=== PATIENT | female | born 1950 | race Caucasian/White ===

== ENCOUNTER 2018-10-06 09:00 | Observation (INO) | payer MEDICARE, OTHER ==
[2018-09-30 10:47] LABS: BASOPHILS # (AUTO) 0.1 (0.0-0.1); EOSINOPHILS # (AUTO) 0.1 (0.0-0.4); EOSINOPHILS % 1.2 % (0.0-6.0); HEMATOCRIT 37.7 % (34.2-44.1); HEMOGLOBIN 12.6 g/dL (12.0-16.0); LYMPHOCYTES # (AUTO) 2.5 (1.0-3.2); LYMPHOCYTES % 49.8 % (18.0-39.1); MEAN CORPUSCULAR HEMOGLOBIN 30.4 pg (28-32); MEAN CORPUSCULAR HGB CONC 33.4 g/dL (31-35); MEAN CORPUSCULAR VOLUME 91.1 fL (81-99); MONOCYTES # (AUTO) 0.4 (0.2-0.8); MONOCYTES % 7.9 % (4.4-11.3); NEUTROPHILS % 39.7 % (38.7-80.0); PLATELET COUNT 206 x10e3/uL (140-360); RED BLOOD COUNT 4.14 x10e6/uL (3.6-5.1); RED CELL DISTRIBUTION WIDTH 13.7 % (11.7-14.4)
[2018-09-30 11:07] LABS: ALANINE AMINOTRANSFERASE 35 IU/L (0-55); ALBUMIN 4.3 g/dL (3.5-5.0); ALBUMIN/GLOBULIN RATIO 1.3 (0.8-2.0); ALKALINE PHOSPHATASE 72 IU/L (40-150); ANION GAP 12.8 mmol/L (8-16); BLOOD UREA NITROGEN 17 mg/dL (7-26); BUN/CREATININE RATIO 22 (6-25); CALCIUM 9.9 mg/dL (8.4-10.2); CARBON DIOXIDE 30 mmol/L (22-29); CHLORIDE 101 mmol/L (98-107); CREATININE, SERUM 0.77 mg/dL (0.57-1.11); EST GLOMERULAR FILTRATION RATE > 60 ML/MIN (60-); GLUCOSE 92 mg/dL (74-118); POTASSIUM 3.8 mmol/L (3.5-5.1); SODIUM 140 mmol/L (136-145)
--- NOTE | 2018-09-30 11:20 | Diagnostic Imaging Report ---
PROCEDURE: X-RAY CHEST, TWO VIEWS COMPARISON: None. INDICATIONS: PRE OPERATIVE FOR SURGERY [id number]/2018 FINDINGS: Lungs are well-inflated. No focal consolidation, pleural effusion, or pneumothorax. Cardiomediastinal contour and pulmonary vasculature are within normal limits. No acute osseous abnormality. CONCLUSION: No acute cardiopulmonary abnormality. Dictated by: Primo Stanton M.D. on 09/30/2018 at 11:30 Electronically approved by: Primo Stanton M.D. on 09/30/2018 at 11:30
[~2018-10-06 09:00] MED LIST: ATORVASTATIN CA10 MG PO; CALCIUM 500+D1 EACH PO; CLOTRIMAZOLE-BE15 GM TOP; DIOVAN160 MG PO; MULTIVITAMINS1 EAC6 PO; NITROFURANTOIN100 MG PO; PROBIOTIC & AC1 EACH PO; TRIAMTERENE-HCTZ1 EA PO; [UNRECOGNIZED DRUG - OTHER] PO; [UNRECOGNIZED DRUG - OTHER] PO; [UNRECOGNIZED DRUG - REMARK]
--- OUTSIDE RECORDS SUMMARY | 2018-10-06 09:02 | XMS REPORT | Continuity of Care Document ---
Author Author [facility] Interface Address Unknown Phone Unavailable Problems Problem Status Onset Date Classification Date Reported Comments Source DX: M81.0=AGE-RELATED OSTEOPOROSIS WITHO Active 02/16/2018 [facility] UNK Active 07/22/2017 [facility] DX: ROUTINE SCREENING Active 04/11/2017 [facility] SCREENING MAMMOGRAM Active 12/14/2015 [facility] BLE DX:451.1=DEEP PHLEBITIS/454.8=BLEED Active 08/15/2014 [facility] SCREENING OSTEPORSIS Active 11/12/2013 [facility] SPLIT [id number] Active 01/21/2013 [facility] WEAKNESS Active 09/08/2012 [facility] SYNCOPE Active 09/08/2012 [facility] Syncope and collapse Active 09/08/2012 Problem 09/11/2012 [facility] Syncope and collapse Active 09/08/2012 Problem 02/23/2018 [facility] Varicose vein of leg Active Diagnosis 05/08/2018 [facility] Primary Essential hypertension Active Diagnosis 05/08/2018 [facility] Primary Breast cancer screening Active Diagnosis 11/27/2017 [facility] Primary Osteoporosis screening Active Diagnosis 11/27/2017 [facility] Primary Age-related osteoporosis without current pathological fracture Active Problem 05/08/2018 [facility] Primary Mixed hyperlipidemia Active Diagnosis 05/08/2018 [facility] Primary Dysuria Active Diagnosis 12/10/2017 [facility] Primary Low vitamin D level Active Problem 05/08/2018 [facility] Primary Arthritis Active Problem 05/08/2018 [facility] Primary Bundle branch block Active Problem 05/08/2018 [facility] Primary Acute cystitis without hematuria Active Diagnosis 05/08/2018 [facility] Primary HTN - Hypertension Active Problem 09/11/2012 [facility] HTN - Hypertension Active Problem 02/23/2018 [facility] Hypercholesteremia Resolved Problem 02/23/2018 [facility] HTN (<span ID="[id number]">Confirmed</span>) Resolved Problem 02/23/2018 [facility] M17.9 Active [facility] AGE-RELATED OSTEOPOROSIS W/O CURRENT PAT Active [facility] Medications Medication Details Route Status Patient Instructions Ordering Provider Order Date Source Ergocalciferol 1 capsule Orally Active 12281 UNIT Orally once a week David 05/07/2018 [facility] Naproxen 1 tablet with food or milk as needed Orally Active 500 mg Orally every 12 hrs [facility] 03/02/2018 [facility] Ergocalciferol 1 capsule Orally Active 02096 UNIT Orally once a week [facility] 12/09/2017 [facility] Albuterol 0.833 MG/ML / Ipratropium [place] 0.167 MG/ML Inhalant Solution 3 mL, Route: NEB, Drug Form: SOLN, Dosing Weight 67.273, kg, ONCE, STAT, Start date: 08/20/17 6:51:00 CDT, Stop date: 08/20/17 6:51:00 CDTNotes: (Same as: [place]) Inactive 08/20/2017 [facility] sodium chloride 0.9% 500 ml INJ 500 mL 500 mL, Rate: 25 ml/hr, Infuse over: 20 hr, Route: IV, Dosing Weight 67.273 kg, Total Volume: 500, Start date: 08/20/17 6:51:00 CDT, Duration: 1 day, Stop date: 08/21/17 6:50:00 CDT Inactive 08/20/2017 [facility] Simvastatin 10 MG Oral Tablet [Zocor] 10 mg=1 tab, PO, Bedtime, # 30 tab, 0 Refill(s) Active 08/08/2017 [facility] Hydrochlorothiazide 12.5 MG / valsartan 80 MG Oral Tablet [Diovan HCT 80/12.5] 1 tab, PO, Daily, # 30 tab, 0 Refill(s) Active 08/08/2017 [facility] aspirin 81 mg tablet, chewable 81 mg, 1 tab, PO, Daily, 10 tab, Substitution Allowed, CHEWTAB PO Active Sada 09/09/2012 [facility] Lipitor 10 mg, 1 tab, Route: PO, Drug form: TAB, Bedtime, Dosing Weight 59.091, kg, Start date: 09/08/12 21:00:00, Duration: 30 day, Stop date: 10/07/12 21:00:00 PO No Longer Active Sada 09/09/2012 [facility] Saline Flush 0.9% 5 ml, Route: IVP, Drug Form: INJ, Dosing Weight 59.091, kg, Q12H, Start date: 10/30/12 21:00:00, Duration: 30 day, Stop date: 10/08/12 9:00:00 IVP No Longer Active Sada 09/09/2012 [facility] Saline Flush 0.9% 5 ml, Route: IVP, Drug Form: INJ, Dosing Weight 59.091, kg, PRN, PRN Line Flush, Start date: 09/08/12 19:13:00, Duration: 30 day, Stop date: 10/08/12 18:12:00 IVP No Longer Active Sada 09/09/2012 [facility] Sodium Chloride 0.9% IV 1,000 mL 1,000 mL, Rate: 50 ml/hr, Infuse over: 20 hr, Route: IV, kg, Total Volume: 1,000, Start date: 09/08/12 19:13:00, Duration: 30 day, Stop date: 10/08/12 19:12:00 IV No Longer Active Sada 09/09/2012 [facility] aspirin 81 mg, 1 tab, Route: PO, Drug form: CHEWTAB, Daily, Dosing Weight 59.091, kg, Start date: 09/08/12 18:30:00, Duration: 30 day, Stop date: 10/08/12 9:00:00 PO No Longer Active Sada 09/08/2012 [facility] enoxaparin 40 mg, 0.4 mL, Route: SUB-Q, Drug form: INJ, [id number], Dosing Weight 59.091, kg, Start date: 09/08/12 18:00:00, Duration: 30 day, Stop date: 10/07/12 18:00:00 SUB-Q No Longer Active Sada 09/08/2012 [facility] Ambien 5 mg, 1 tab, Route: PO, Drug form: TAB, Bedtime, Dosing Weight 59.091, kg, PRN as needed for sleep, Start date: 09/08/12 17:51:00, Duration: 30 day, Stop date: 10/08/12 17:50:00, PO No Longer Active Sada 09/08/2012 [facility] Fish Oil 1,200 mg, PO, Every Other Day, Substitution Allowed PO Active 09/08/2012 [facility] lisinopril 10 mg oral tablet 10 mg, 1 tab, PO, Daily, Substitution Allowed PO No Longer Active 09/08/2012 [facility] Lipitor 10 mg oral tablet 10 mg, 1 tab, PO, Bedtime, Substitution Allowed PO Active 09/08/2012 [facility] Saline Flush 0.9% 5 ml, Route: IVP, Drug Form: INJ, Dosing Weight 59.091, kg, PRN, PRN Line Flush, Start date: 09/08/12 16:25:00, Duration: 30 day, Stop date: 10/08/12 15:24:00 IVP No Longer Active Yazidism 09/08/2012 [facility] Sodium Chloride 0.9% IV 1,000 mL 1,000 mL, Rate: 125 ml/hr, Infuse over: 8 hr, Route: IV, kg, Total Volume: 1,000, Start date: 09/08/12 16:25:00, Duration: 30 day, Stop date: 10/08/12 16:24:00 IV No Longer Active Sada 09/08/2012 [facility] Valsartan 1 tablet Orally Active 160 MG Orally Once a day [facility] Triamterene-HCTZ 1 tablet in the morning Orally Active 37.5-25 MG Orally Once a day [facility] Atorvastatin Calcium 1 tablet Orally Active 10 mg Orally Once a day [facility] Estrace cream NA Active 1 MG uses twice a week [facility] Estrace cream NA Active 1 MG uses twice a week [facility] ZyrTEC 1 tablet Orally Active [address] [facility] Allergies, Adverse Reactions, Alerts Substance Category Reaction Severity Reaction type Status Date Reported Comments Source N.K.D.A. Adverse Reaction Info Not Available Adverse Reaction Active 05/07/2018 [facility] Primary Immunizations Immunization Date Given Site Status Last Updated Comments Source Results Order Name Results Value Reference Range Date Interpretation Comments Source Bone Density Scan Bone Density Scan Patient Name: DUSTIN GARRISON : 1950; Age: 67 years y/o Female MR: [id number] Study: Bone Density Scan 02/20/2018 11:06 AM CDT Clinical Indication: - M81.0 Age-related osteoporosis without current pathological fracture. COMPARISON: November 17, 2013 FINDINGS: The axial lumbar bone mineral density is 98% of the expected age matched bone mass with a T-score -0.2. Axial lumbar average BMD is 1.03 g/cm2. This is increased 4.1% when compared to the prior exam. The left femoral neck bone mineral density is 93% of the expected age matched bone mass with a T-score of -0.5. Left femoral neck BMD is 0.82 g/cm2. The total femoral BMD is 1.0 g/cm2. This is decreased 7.9% when compared to the prior exam. IMPRESSION: 1. Normal bone mineral density of the lumbar spine. 2. Normal bone mineral density of the left femoral neck. The World Health Organization has established that OSTEOPOROSIS occurs at -2.5 or more standard deviations (SD) below peak bone mass. OSTEOPENIA (low bone mass) occurs at -1.0 standard deviations to -2.5 standard deviations below peak bone mass. SL: [id number] 02/20/2018 - - Read by: Boris Bagley MD Dictated Date/time: 02/20/18 11:21 Electronically Signed by: Boris Bagley MD 02/20/18 11:22 FINAL REPORT [facility] Breast Mammo Scrn JIM incl CAD MA Breast Mammo Scrn JIM incl CAD MA - BREAST MAMMO SCRN JIM INCL CAD MA BILATERAL DIGITAL SCREENING MAMMOGRAM WITH CAD: 05/31/2017 CLINICAL: /Routine. Current study was evaluated with a Computer Aided Detection (CAD) system. Comparison is made to exams dated: 12/22/2015 mammogram, 11/17/2013 mammogram, 09/08/2012 mammogram, 05/24/2011 mammogram, 10/05/2007 mammogram - [facility] and 09/29/2007 mammogram. There are scattered fibroglandular densities in both breasts. No significant masses, calcifications, or other findings are seen in either breast. There has been no significant interval change. IMPRESSION: NEGATIVE There is no mammographic evidence of malignancy. A 1 year screening mammogram is recommended. Mallory toussaint/penrad:06/02/2017 08:03:04 French Folder: Sruthi Chaparro, [facility] This exam was dictated and interpreted by [id number] for [facility]. letter sent: Normal exam Mammogram BI-RADS: 1 Negative 05/31/2017 - - Read by: Mallory Honeycutt MD Dictated Date/time: 06/02/17 08:03 Electronically Signed by: Mallory Honeycutt MD 06/02/17 08:03 FINAL REPORT [facility] Knee 3 views DX Knee 3 views DX Study: Right knee, 3 views Clinical Indication: M17.9 Osteoarthritis of knee, unspecified, right knee pain Comparison: None FINDINGS: Multiple views of the right knee show no acute bony fracture, joint dislocation, or suspicious osseous lesion. Joint spaces are well preserved. No joint effusion is seen. Soft tissues are unremarkable. IMPRESSION: Normal exam of the right knee. SL: [id number] 04/22/2016 - - Read by: Edison Al MD Dictated Date/time: 04/22/16 15:42 Electronically Signed by: Edison Al MD 04/22/16 15:43 FINAL REPORT [facility] Digital Mammo Screening Jim MA Digital Mammo Screening Jim MA - DIGITAL MAMMO SCREENING JIM MA BILATERAL DIGITAL SCREENING MAMMOGRAM WITH CAD: 12/22/2015 CLINICAL: Routine Annual. Current study was evaluated with a Computer Aided Detection (CAD) system. Comparison is made to exams dated: 09/08/2012 mammogram, 11/17/2013 mammogram, 05/24/2011 mammogram - [facility], 01/02/2004 and 09/29/2007 mammogram. There are scattered fibroglandular densities in both breasts. No significant masses, calcifications, or other findings are seen in either breast. There has been no significant interval change. IMPRESSION: NEGATIVE There is no mammographic evidence of malignancy. A 1 year screening mammogram is recommended. Mallory toussaint/penrad:12/25/2015 09:44:10 French Folder: Maria Kc, [facility] This exam was dictated and interpreted by [id number] for [facility]. letter sent: Normal exam Mammogram BI-RADS: 1 Negative 12/22/2015 - - Read by: Mallory Honeycutt MD Dictated Date/time: 12/25/15 09:44 Electronically Signed by: Mallory Honeycutt MD 12/25/15 09:44 FINAL REPORT [facility] CHEMISTRY Total CK 75 unit/L 12 - 191 09/09/2012 Normal [facility] CHEMISTRY Troponin-I null 0.00 - 0.40 09/09/2012 Normal [facility] CHEMISTRY CK MB Index 1.6 0.0 - 2.5 09/09/2012 Normal [facility] CHEMISTRY CK MB 1.2 ng/mL 0.5 - 3.6 09/09/2012 Normal [facility] CHEMISTRY CK MB Index 1.7 0.0 - 2.5 09/09/2012 Normal [facility] CHEMISTRY CK MB 1.3 ng/mL 0.5 - 3.6 09/09/2012 Normal [facility] CHEMISTRY Total CK 78 unit/L 12 - 191 09/09/2012 Normal [facility] CHEMISTRY Troponin-I null 0.00 - 0.40 09/09/2012 Normal [facility] URINALYSIS UA Spec Grav 1.020 <=1.030 09/08/2012 Normal [facility] URINALYSIS UA pH 6.0 5.0 - 8.0 09/08/2012 Normal [facility] URINALYSIS UA Color Yellow *NA* (09/08/2012 16:30:00) Yellow 09/08/2012 NA [facility] URINALYSIS UA Turbidity Clear (09/08/2012 16:30:00) Clear 09/08/2012 Normal [facility] URINALYSIS UA Ketones Negative mg/dL *NA* (09/08/2012 16:30:00) Negative 09/08/2012 NA [facility] URINALYSIS UA Protein Negative mg/dL (09/08/2012 16:30:00) Negative 09/08/2012 Normal [facility] URINALYSIS UA Bili Negative *NA* (09/08/2012 16:30:00) Negative 09/08/2012 NA [facility] URINALYSIS UA Nitrite Negative (09/08/2012 16:30:00) Negative 09/08/2012 Normal [facility] URINALYSIS UA Glucose Negative mg/dL (09/08/2012 16:30:00) Negative 09/08/2012 Normal [facility] URINALYSIS UA Blood Negative (09/08/2012 16:30:00) Negative 09/08/2012 Normal [facility] URINALYSIS UA Leuk Est Negative (09/08/2012 16:30:00) Negative 09/08/2012 Normal [facility] URINALYSIS UA Urobilinogen 0.2 EU/dL 0.1 - 1.0 09/08/2012 Normal [facility] URINALYSIS UA Mucus Few /LPF *NA* (09/08/2012 16:30:00) None Seen 09/08/2012 [facility] URINALYSIS UA Bacteria Occasional /HPF *NA* (09/08/2012 16:30:00) None Seen 09/08/2012 NA [facility] URINALYSIS UA RBC 4 /HPF 0 - 2 09/08/2012 HI [facility] URINALYSIS UA Sq Epi Moderate /LPF *ABN* (09/08/2012 16:30:00) Few 09/08/2012 ABN [facility] URINALYSIS UA WBC 5 /HPF 0 - 5 09/08/2012 Normal [facility] CHEMISTRY CHD Risk 2.78 3.90 - 5.80 09/08/2012 LOW [facility] CHEMISTRY HDL 51 mg/dL >=35 09/08/2012 Normal [facility] CHEMISTRY LDL 70 mg/dL 0 - 129 09/08/2012 Normal [facility] CHEMISTRY Trig 107 mg/dL 0 - 200 09/08/2012 Normal [facility] CHEMISTRY Chol 142 mg/dL 120 - 200 09/08/2012 Normal [facility] CHEMISTRY CK MB Index 0.9 0.0 - 2.5 09/08/2012 Normal [facility] CHEMISTRY Troponin-I null 0.00 - 0.40 09/08/2012 Normal [facility] CHEMISTRY CK MB 1.1 ng/mL 0.5 - 3.6 09/08/2012 Normal [facility] CHEMISTRY Total CK 116 unit/L 12 - 191 09/08/2012 Normal [facility] CHEMISTRY eGFR 95 mL/min/1.73m2 09/08/2012 NA 1Result Comment: The eGFR is calculated using the CKD-EPI formula. In most young, healthy individuals the eGFR will be >90 mL/min/1.73m2. The eGFR declines with age. An eGFR of 60-89 may be normal in some populations, particularly the elderly, for whom the CKD-EPI formula has not been extensively validated. Use of the eGFR is not recommended in the following populations: Individuals with unstable creatinine concentrations, including patients and those with serious co-morbid conditions. Patients with extremes in muscle mass or diet. The data above are obtained from the National Kidney Disease Education Program (NKDEP) which additionally recommends that when the eGFR is used in patients with extremes of body mass index for purposes of drug dosing, the eGFR should be multiplied by the estimated BMI. [facility] CHEMISTRY AGAP 14.8 meq/L 10.0 - 20.0 09/08/2012 Normal [facility] CHEMISTRY Albumin Lvl 3.7 g/dL 3.5 - 5.0 09/08/2012 Normal [facility] CHEMISTRY B/C Ratio 23 6 - 25 09/08/2012 Normal [facility] CHEMISTRY Calcium Lvl 8.8 mg/dL 8.5 - 10.5 09/08/2012 Normal [facility] CHEMISTRY Potassium Lvl 3.8 meq/L 3.5 - 5.1 09/08/2012 Normal [facility] CHEMISTRY Sodium Lvl 142 meq/L 135 - 145 09/08/2012 Normal [facility] CHEMISTRY CO2 23 meq/L 24 - 32 09/08/2012 LOW [facility] CHEMISTRY Chloride Lvl 108 meq/L 95 - 109 09/08/2012 Normal [facility] CHEMISTRY Glucose Lvl 92 mg/dL 70 - 99 09/08/2012 Normal 2Interpretive Data: Adult reference range values reflect the clinical guidelines of the [place] [employer]. [facility] CHEMISTRY BUN 16 mg/dL 7 - 22 09/08/2012 Normal [facility] CHEMISTRY Creatinine Lvl 0.7 mg/dL 0.5 - 1.4 09/08/2012 Normal [facility] CHEMISTRY Bili Total 0.3 mg/dL 0.2 - 1.3 09/08/2012 Normal [facility] CHEMISTRY Globulin 3.6 g/dL 2.0 - 4.0 09/08/2012 Normal [facility] CHEMISTRY AST 30 unit/L 0 - 37 09/08/2012 Normal [facility] CHEMISTRY Alk Phos 76 unit/L 39 - 136 09/08/2012 Normal [facility] CHEMISTRY ALT 48 unit/L 0 - 65 09/08/2012 Normal [facility] CHEMISTRY Total Protein 7.3 g/dL 6.4 - 8.4 09/08/2012 Normal [facility] CHEMISTRY A/G Ratio 1.0 0.7 - 1.6 09/08/2012 Normal [facility] HEMATOLOGY Basophils # 0.1 K/CMM 0.0 - 0.2 09/08/2012 Normal [facility] HEMATOLOGY Eosinophils # 0.1 K/CMM 0.0 - 0.5 09/08/2012 Normal [facility] HEMATOLOGY Monocytes # 0.4 K/CMM 0.0 - 0.8 09/08/2012 Normal [facility] HEMATOLOGY Basophils 0.9 % 0.0 - 1.0 09/08/2012 Normal [facility] HEMATOLOGY Segs-Bands # 2.3 K/CMM 1.5 - 8.1 09/08/2012 Normal [facility] HEMATOLOGY Lymphocytes # 3.9 K/CMM 1.0 - 5.5 09/08/2012 Normal [facility] HEMATOLOGY Eosinophils 1.3 % 0.0 - 4.0 09/08/2012 Normal [facility] HEMATOLOGY Monocytes 6.0 % 2.0 - 12.0 09/08/2012 Normal [facility] HEMATOLOGY Segs 33.6 % 45.0 - 75.0 09/08/2012 LOW [facility] HEMATOLOGY Lymphocytes 58.2 % 20.0 - 40.0 09/08/2012 HI [facility] HEMATOLOGY MCV 91.1 fL 81.0 - 99.0 09/08/2012 Normal [facility] HEMATOLOGY Hct 37.0 % 36.0 - 48.0 09/08/2012 Normal [facility] HEMATOLOGY Hgb 12.7 g/dL 12.0 - 16.0 09/08/2012 Normal [facility] HEMATOLOGY WBC 6.7 K/CMM 3.7 - 10.4 09/08/2012 Normal [facility] HEMATOLOGY RBC 4.06 M/CMM 4.20 - 5.40 09/08/2012 LOW [facility] HEMATOLOGY MPV 8.8 fL 7.4 - 10.4 09/08/2012 Normal [facility] HEMATOLOGY MCH 31.2 pg 27.0 - 31.0 09/08/2012 [facility] HEMATOLOGY MCHC 34.3 g/dL 32.0 - 36.0 09/08/2012 Normal [facility] HEMATOLOGY RDW 13.6 % 11.5 - 14.5 09/08/2012 Normal [facility] HEMATOLOGY Platelet 244 K/CMM 133 - 450 09/08/2012 Normal [facility] HEMATOLOGY INR 0.93 0.85 - 1.17 09/08/2012 Normal 3Interpretive Data: RECOMMENDED RANGES FOR PROTIME INR: 2.0-3.0 for most medical and surgical thromboembolic states. 2.5-3.5 for artificial heart valves and recurrent embolism. INR SHOULD BE USED ONLY FOR PATIENTS ON STABLE ANTICOAGULANT THERAPY. [facility] HEMATOLOGY PT 12.7 s 12.0 - 14.7 09/08/2012 Normal [facility] Vital Signs Vital Sign Value Date Comments Source Weight 153.3 05/07/2018 [facility] Primary Height 63 05/07/2018 [facility] Primary Temperature Oral (F) 97.0 F 05/07/2018 [facility] Primary Heart Rate 92 05/07/2018 [facility] Primary Diastolic (mm Hg) 71 05/07/2018 [facility] Primary Systolic (mm Hg) 102 05/07/2018 [facility] Primary Weight 150.7 03/02/2018 [facility] Primary Height 63 03/02/2018 [facility] Primary Temperature Oral (F) 97.7 F 03/02/2018 [facility] Primary Heart Rate 83 03/02/2018 [facility] Primary Diastolic (mm Hg) 69 03/02/2018 [facility] Primary Systolic (mm Hg) 102 03/02/2018 [facility] Primary Weight 150.2 12/09/2017 [facility] Primary Height 63 12/09/2017 [facility] Primary Temperature Oral (F) 98.1 F 12/09/2017 [facility] Primary Heart Rate 86 12/09/2017 [facility] Primary Diastolic (mm Hg) 67 12/09/2017 [facility] Primary Systolic (mm Hg) 101 12/09/2017 [facility] Primary Weight 150.9 11/26/2017 [facility] Primary Height 63 11/26/2017 [facility] Primary Temperature Oral (F) 98.2 F 11/26/2017 [facility] Primary Heart Rate 76 11/26/2017 [facility] Primary Diastolic (mm Hg) 74 11/26/2017 [facility] Primary Systolic (mm Hg) 109 11/26/2017 [facility] Primary Respitory Rate 21 08/20/2017 [facility] Systolic (mm Hg) 115 08/20/2017 [facility] Diastolic (mm Hg) 75 08/20/2017 [facility] Respitory Rate 18 08/20/2017 [facility] Systolic (mm Hg) 116 08/20/2017 [facility] Diastolic (mm Hg) 72 08/20/2017 [facility] Respitory Rate 18 08/20/2017 [facility] Systolic (mm Hg) 106 08/20/2017 [facility] Diastolic (mm Hg) 53 08/20/2017 [facility] Heart Rate 60 08/20/2017 [facility] BMI Calculated 26.27 08/08/2017 [facility] Height 160.02 cm 08/08/2017 [facility] Weight 67.273 08/08/2017 [facility] Heart Rate 85 09/09/2012 [facility] Temperature Oral (F) 98.7 F 09/09/2012 [facility] Diastolic (mm Hg) 67 09/09/2012 [facility] Systolic (mm Hg) 109 09/09/2012 [facility] Respitory Rate 20 09/09/2012 [facility] Respitory Rate 20 09/09/2012 [facility] Respitory Rate 20 09/09/2012 [facility] Heart Rate 75 09/09/2012 [facility] Systolic (mm Hg) 111 09/09/2012 [facility] Diastolic (mm Hg) 71 09/09/2012 [facility] Temperature Oral (F) 97.9 F 09/09/2012 [facility] Heart Rate 73 09/09/2012 [facility] Temperature Oral (F) 97.9 F 09/09/2012 [facility] Systolic (mm Hg) 103 09/09/2012 [facility] Diastolic (mm Hg) 70 09/09/2012 [facility] Weight 59.091 09/08/2012 [facility] Height 160.02 cm 09/08/2012 [facility] Encounters Location Location Details Encounter Type Encounter Number Reason For Visit Attending Provider ADM Date DC Date Status Source [facility] OU [id number] JASE SADA 09/08/2012 09/09/2012 Active [facility] Outpatient [id number] Jase Sada 12/22/2015 12/23/2015 [facility] Outpatient [id number] Jase Sada 04/22/2016 04/23/2016 [facility] Outpatient [id number] Jase Sada 05/31/2017 06/01/2017 [facility] Bedded Outpatient [id number] Vishnu Khan 08/20/2017 08/20/2017 [facility] Outpatient [id number] Krystin Hernandez 02/20/2018 02/21/2018 [facility] Outpatient [id number] S[facility] [id number] JASE SADA Cancel [facility] Outpatient [id number] SCREENING OSTEPORSIS JASE SADA Active [facility] Procedures Procedure Code Date Perfomer Comments Source Hysterectomy [id number] [facility] Tonsillectomy [id number] [facility]
--- OUTSIDE RECORDS SUMMARY | 2018-10-06 09:02 | XMS REPORT | CCD ---
Author Author Auto Generated Organization [facility] Address Unknown Phone Unavailable Care Team Providers Care Precast Concrete Products Installer Name Role Phone Richard Bonner PP Allergies, Adverse Reactions, Alerts Substance Reaction Status NKDA Active Problem List Condition Effective Dates Status HTN - Hypertension Active Syncope and collapse 09/08/2012 Active Medications Medication Instructions Start Date End Date Status Ambien 5 mg, 1 tab, Route: PO, Drug form: 09/08/2012 09/09/2012 Discontinued TAB, Bedtime, Dosing Weight 59.091, kg, PRN as needed for sleep, Start date: 09/08/12 17:51:00, Duration: 30 day, Stop date: 10/08/12 17:50:00, Lipitor 10 mg, 1 tab, Route: PO, Drug form: 09/08/2012 09/09/2012 Discontinued TAB, Bedtime, Dosing Weight 59.091, kg, Start date: 09/08/12 21:00:00, Duration: 30 day, Stop date: 10/07/12 21:00:00 aspirin 81 mg, 1 tab, Route: PO, Drug form: 09/08/2012 09/09/2012 Discontinued CHEWTAB, Daily, Dosing Weight 59.091, kg, Start date: 09/08/12 18:30:00, Duration: 30 day, Stop date: 10/08/12 9:00:00 enoxaparin 40 mg, 0.4 mL, Route: SUB-Q, Drug 09/08/2012 09/09/2012 Discontinued form: INJ, [id number], Dosing Weight 59.091, kg, Start date: 09/08/12 18:00:00, Duration: 30 day, Stop date: 10/07/12 18:00:00 aspirin 81 mg 81 mg, 1 tab, PO, Daily, 10 tab, 09/09/2012 Ordered tablet, chewable Substitution Allowed, CHEWTAB Saline Flush 0.9% 5 ml, Route: IVP, Drug Form: INJ, 09/08/2012 09/09/2012 Discontinued Dosing Weight 59.091, kg, PRN, PRN Line Flush, Start date: 09/08/12 16:25:00, Duration: 30 day, Stop date: 10/08/12 15:24:00 Sodium Chloride 0.9% 1,000 mL, Rate: 125 ml/hr, Infuse 09/08/2012 09/08/2012 Discontinued IV 1,000 mL over: 8 hr, Route: IV, kg, Total Volume: 1,000, Start date: 09/08/12 16:25:00, Duration: 30 day, Stop date: 10/08/12 16:24:00 Fish Oil 1,200 mg, PO, Every Other Day, 09/08/2012 Ordered Substitution Allowed Saline Flush 0.9% 5 ml, Route: IVP, Drug Form: INJ, 09/08/2012 09/09/2012 Discontinued Dosing Weight 59.091, kg, PRN, PRN Line Flush, Start date: 09/08/12 19:13:00, Duration: 30 day, Stop date: 10/08/12 18:12:00 Saline Flush 0.9% 5 ml, Route: IVP, Drug Form: INJ, 09/08/2012 09/09/2012 Discontinued Dosing Weight 59.091, kg, Q12H, Start date: 09/08/12 21:00:00, Duration: 30 day, Stop date: 10/08/12 9:00:00 Sodium Chloride 0.9% 1,000 mL, Rate: 50 ml/hr, Infuse 09/08/2012 09/09/2012 Discontinued IV 1,000 mL over: 20 hr, Route: IV, kg, Total Volume: 1,000, Start date: 09/08/12 19:13:00, Duration: 30 day, Stop date: 10/08/12 19:12:00 lisinopril 10 mg 10 mg, 1 tab, PO, Daily, 09/08/2012 09/09/2012 Discontinued oral tablet Substitution Allowed Lipitor 10 mg oral 10 mg, 1 tab, PO, Bedtime, 09/08/2012 Ordered tablet Substitution Allowed Vital Signs Most recent to oldest [Reference Range]: 1 2 3 Height 160.02 cm (09/08/2012 15:59:00) Temperature Oral [96.4-99.1 DegF] 98.7 DegF (09/09/2012 12:24:00) 97.9 DegF (09/09/2012 08:00:00) 97.9 DegF (09/09/2012 04:00:00) Systolic Blood Pressure [90-140 mmHg] 109 mmHg (09/09/2012 12:24:00) 111 mmHg (09/09/2012 08:00:00) 103 mmHg (09/09/2012 04:00:00) Diastolic Blood Pressure [60-90 mmHg] 67 mmHg (09/09/2012 12:24:00) 71 mmHg (09/09/2012 08:00:00) 70 mmHg (09/09/2012 04:00:00) Respiratory Rate [14-20 BRMIN] 20 BRMIN (09/09/2012 12:24:00) 20 BRMIN (09/09/2012 08:55:00) 20 BRMIN (09/09/2012 08:00:00) Peripheral Pulse Rate [60-100 bpm] 85 bpm (09/09/2012 12:24:00) 75 bpm (09/09/2012 08:00:00) 73 bpm (09/09/2012 04:00:00) Weight 59.091 kg (09/08/2012 15:59:00) Results URINALYSIS Most recent to oldest [Reference Range]: 1 2 3 UA Turbidity [Clear] Clear (09/08/2012 16:30:00) UA Color [Yellow] Yellow *NA* (09/08/2012 16:30:00) UA pH [5.0-8.0] 6.0 (09/08/2012 16:30:00) UA Spec Grav [<=1.030] 1.020 (09/08/2012 16:30:00) UA Glucose [Negative mg/dL] Negative mg/dL (09/08/2012 16:30:00) UA Blood [Negative] Negative (09/08/2012 16:30:00) UA Ketones [Negative mg/dL] Negative mg/dL *NA* (09/08/2012 16:30:00) UA Protein [Negative mg/dL] Negative mg/dL (09/08/2012 16:30:00) UA Urobilinogen [0.1-1.0 EU/dL] 0.2 EU/dL (09/08/2012 16:30:00) UA Bili [Negative] Negative *NA* (09/08/2012 16:30:00) UA Leuk Est [Negative] Negative (09/08/2012 16:30:00) UA Nitrite [Negative] Negative (09/08/2012 16:30:00) UA WBC [0-5 /HPF] 5 /HPF (09/08/2012 16:30:00) UA RBC [0-2 /HPF] 4 /HPF *HI* (09/08/2012 16:30:00) UA Bacteria [None Seen /HPF] Occasional /HPF *NA* (09/08/2012 16:30:00) UA Sq Epi [Few /LPF] Moderate /LPF *ABN* (09/08/2012 16:30:00) UA Mucus [None Seen /LPF] Few /LPF *NA* (09/08/2012 16:30:00) CHEMISTRY Most recent to oldest [Reference Range]: 1 2 3 Sodium Lvl [135-145 mEq/L] 142 mEq/L (09/08/2012 16:12:00) Potassium Lvl [3.5-5.1 mEq/L] 3.8 mEq/L (09/08/2012 16:12:00) Chloride Lvl [95-109 mEq/L] 108 mEq/L (09/08/2012 16:12:00) CO2 [24-32 mEq/L] 23 mEq/L *LOW* (09/08/2012 16:12:00) AGAP [10.0-20.0 mEq/L] 14.8 mEq/L (09/08/2012 16:12:00) Creatinine Lvl [0.5-1.4 mg/dL] 0.7 mg/dL (09/08/2012 16:12:00) eGFR 95 mL/min/1.73m2 1 *NA* (09/08/2012 16:12:00) BUN [7-22 mg/dL] 16 mg/dL (09/08/2012 16:12:00) B/C Ratio [6-25] 23 (09/08/2012 16:12:00) Glucose Lvl [70-99 mg/dL] 92 mg/dL 2 (09/08/2012 16:12:00) Total Protein [6.4-8.4 g/dL] 7.3 g/dL (09/08/2012 16:12:00) Albumin Lvl [3.5-5.0 g/dL] 3.7 g/dL (09/08/2012 16:12:00) Globulin [2.0-4.0 g/dL] 3.6 g/dL (09/08/2012 16:12:00) A/G Ratio [0.7-1.6] 1.0 (09/08/2012 16:12:00) Calcium Lvl [8.5-10.5 mg/dL] 8.8 mg/dL (09/08/2012 16:12:00) ALT [0-65 unit/L] 48 unit/L (09/08/2012 16:12:00) AST [0-37 unit/L] 30 unit/L (09/08/2012 16:12:00) Alk Phos [39-136 unit/L] 76 unit/L (09/08/2012 16:12:00) Bili Total [0.2-1.3 mg/dL] 0.3 mg/dL (09/08/2012 16:12:00) Total CK [12-191 unit/L] 75 unit/L (09/09/2012 04:39:00) 78 unit/L (09/08/2012 23:50:00) 116 unit/L (09/08/2012 16:12:00) CK MB [0.5-3.6 ng/mL] 1.2 ng/mL (09/09/2012 04:39:00) 1.3 ng/mL (09/08/2012 23:50:00) 1.1 ng/mL (09/08/2012:12:00) CK MB Index [0.0-2.5] 1.6 (09/09/2012 04:39:00) 1.7 (09/08/2012 23:50:00) 0.9 (09/08/2012 16:12:00) Troponin-I [0.00-0.40 ng/mL] <0.02 ng/mL (09/09/2012 04:39:00) <0.02 ng/mL (09/08/2012 23:50:00) <0.02 ng/mL (09/08/2012 16:12:00) CHD Risk [3.90-5.80] 2.78 *LOW* (09/08/2012:12:00) Chol [120-200 mg/dL] 142 mg/dL (09/08/2012 16:12:00) Trig [0-200 mg/dL] 107 mg/dL (09/08/2012 16:12:00) HDL [>=35 mg/dL] 51 mg/dL (09/08/2012:12:00) LDL [0-129 mg/dL] 70 mg/dL (09/08/2012 16:12:00) 1Result Comment: The eGFR is calculated using [...] from the National Kidney Disease Education Program ( NKDEP) which additionally recommends that when the eGFR is used in patients with extremes of body mass index for purposes of drug dosing, the eGFR should be mul tiplied by the estimated BMI. 2Interpretive Data: Adult reference range values reflect the clinical guidelines of the [place] [employer]. HEMATOLOGY Most recent to oldest [Reference Range]: 1 2 3 WBC [3.7-10.4 K/CMM] 6.7 K/CMM (09/08/2012 16:12:00) RBC [4.20-5.40 M/CMM] 4.06 M/CMM *LOW* (09/08/2012 16:12:00) Hgb [12.0-16.0 g/dL] 12.7 g/dL (09/08/2012 16:12:00) Hct [36.0-48.0 %] 37.0 % (09/08/2012 16:12:00) MCV [81.0-99.0 fL] 91.1 fL (09/08/2012 16:12:00) MCH [27.0-31.0 pg] 31.2 pg *HI* (09/08/2012 16:12:00) MCHC [32.0-36.0 g/dL] 34.3 g/dL (09/08/2012 16:12:00) RDW [11.5-14.5 %] 13.6 % (09/08/2012 16:12:00) Platelet [133-450 K/CMM] 244 K/CMM (09/08/2012 16:12:00) MPV [7.4-10.4 fL] 8.8 fL (09/08/2012 16:12:00) Segs [45.0-75.0 %] 33.6 % *LOW* (09/08/2012 16:12:00) Lymphocytes [20.0-40.0 %] 58.2 % *HI* (09/08/2012 16:12:00) Monocytes [2.0-12.0 %] 6.0 % (09/08/2012 16:12:00) Eosinophils [0.0-4.0 %] 1.3 % (09/08/2012 16:12:00) Basophils [0.0-1.0 %] 0.9 % (09/08/2012 16:12:00) Segs-Bands # [1.5-8.1 K/CMM] 2.3 K/CMM (09/08/2012 16:12:00) Lymphocytes # [1.0-5.5 K/CMM] 3.9 K/CMM (09/08/2012 16:12:00) Monocytes # [0.0-0.8 K/CMM] 0.4 K/CMM (09/08/2012 16:12:00) Eosinophils # [0.0-0.5 K/CMM] 0.1 K/CMM (09/08/2012 16:12:00) Basophils # [0.0-0.2 K/CMM] 0.1 K/CMM (09/08/2012 16:12:00) PT [12.0-14.7 seconds] 12.7 seconds (09/08/2012 16:12:00) INR [0.85-1.17] 0.93 3 (09/08/2012 16:12:00) 3Interpretive Data: RECOMMENDED RANGES FOR PROTIME INR: 2.0-3.0 for most medical and surgical thromboembolic states. 2.5-3.5 for artificial heart valves and recurrent embolism. INR SHOULD BE USED ONLY FOR PATIENTS ON STABLE ANTICOAGULANT THERAPY.
--- OUTSIDE RECORDS SUMMARY | 2018-10-06 09:02 | XMS REPORT ---
Author Author Krystin Hernandez Organization [employer] Address Unknown Phone Unavailable Care Team Providers Care Software Development Test Engineer Name Role Phone Krystin Hernandez CP Unavailable Allergies, Adverse Reactions, Alerts Substance Reaction Event Type N.K.D.A. Info Not Available Non Drug Allergy Problems Problem Type Condition Code Onset Dates Condition Status Assessment Mixed hyperlipidemia E78.2 Active Assessment Essential hypertension I10 Active Assessment Varicose vein of leg I83.90 Active Problem Arthritis M19.90 Active Problem Low vitamin D level E55.9 Active Problem Bundle branch block I45.4 Active Problem Essential hypertension I10 Active Problem Varicose vein of leg I83.90 Active Problem Mixed hyperlipidemia E78.2 Active Problem Age-related osteoporosis without current pathological fracture M81.0 Active Assessment Bundle branch block I45.4 Active Assessment Arthritis M19.90 Active Assessment Low vitamin D level E55.9 Active Assessment Acute cystitis without hematuria N30.00 Active Assessment Age-related osteoporosis without current pathological fracture M81.0 Active Medications Medication Code System Code Instructions Start Date End Date Status Dosage Estrace [facility] 98479447018 1 MG uses twice a week Active cream ZyrTEC NDC 0 10 MG Orally daily Active 1 tablet Atorvastatin Calcium ND 63146187148 10 mg Orally Once a day Active 1 tablet Valsartan ND 15831473506 160 MG Orally Once a day Active 1 tablet Triamterene-HCTZ [facility] 95090608296 37.5-25 MG Orally Once a day Active 1 tablet in the morning Ergocalciferol [facility] 18651293995 11318 UNIT Orally once a week May 07, 2018 Aug 05, 2018 Active 1 capsule Vital Signs Date/Time: May 07, 2018 BMI 27.15 Index Weight 153.3 lbs Height 63 in Temperature 97.0 F Cardiac Monitoring Heart Rate 92 /min Blood Pressure Diastolic 71 mm Hg Blood Pressure Systolic 102 mm Hg Results No Known Results Summary Purpose [employer] Submission
--- OUTSIDE RECORDS SUMMARY | 2018-10-06 09:02 | XMS REPORT ---
Author Author Krystin Hernandez Organization [employer] Address Unknown Phone Unavailable Care Team Providers Care Sailboat Captain Name Role Phone Krystin Hernandez CP Unavailable Allergies, Adverse Reactions, Alerts Substance Reaction Event Type N.K.D.A. Info Not Available Non Drug Allergy Problems Problem Type Condition Code Onset Dates Condition Status Problem Varicose vein of leg I83.90 Active Assessment Annual physical exam Z00.00 Active Problem Essential hypertension I10 Active Assessment Essential hypertension I10 Active Assessment Varicose vein of leg I83.90 Active Assessment Breast cancer screening Z12.31 Active Assessment Osteoporosis screening Z13.820 Active Medications Medication Code System Code Instructions Start Date End Date Status Dosage Valsartan [facility] 92085508746 160 MG Orally Once a day Active 1 tablet Triamterene-HCTZ [facility] 31371636415 37.5-25 MG Orally Once a day Active 1 tablet in the morning Estrace [facility] 63237420486 1 MG Orally Daily for Three Weeks, 1 Week off Active 1 tablet Vital Signs Date/Time: Nov 26, 2017 BMI 26.73 Index Weight 150.9 lbs Height 63 in Temperature 98.2 F Cardiac Monitoring Heart Rate 76 /min Blood Pressure Diastolic 74 mm Hg Blood Pressure Systolic 109 mm Hg Results No Known Results Summary Purpose [employer] Submission
--- OUTSIDE RECORDS SUMMARY | 2018-10-06 09:02 | XMS REPORT ---
Author Author Krystin Hernandez Organization [employer] Address Unknown Phone Unavailable Care Team Providers Care Nurse Receptionist Name Role Phone Krystin Hernandez CP Unavailable Allergies, Adverse Reactions, Alerts Substance Reaction Event Type N.K.D.A. Info Not Available Non Drug Allergy Problems Problem Type Condition Code Onset Dates Condition Status Assessment Age-related osteoporosis without current pathological fracture M81.0 Active Assessment Varicose vein of leg I83.90 Active Assessment Mixed hyperlipidemia E78.2 Active Assessment Arthritis M19.90 Active Assessment Low vitamin D level E55.9 Active Problem Low vitamin D level E55.9 Active Problem Mixed hyperlipidemia E78.2 Active Problem Arthritis M19.90 Active Problem Varicose vein of leg I83.90 Active Assessment Essential hypertension I10 Active Problem Age-related osteoporosis without current pathological fracture M81.0 Active Problem Essential hypertension I10 Active Medications Medication Code System Code Instructions Start Date End Date Status Dosage Triamterene-HCTZ [facility] 07681478641 37.5-25 MG Orally Once a day Active 1 tablet in the morning Atorvastatin Calcium ND 57403785960 10 mg Orally Once a day Active [address] [facility] 27048064138 500 mg Orally every 12 hrs March 02, 2018 April 01, 2018 Active 1 tablet with food or milk as needed Ergocalciferol [facility] 38661199118 09919 UNIT Orally once a week Dec 09, 2017 March 09, 2018 Active 1 capsule [address]als[address] [facility] 59250220425 160 MG Orally Once a day Active 1 tablet Estrace ND 72007298542 1 MG uses twice a week Active cream Vital Signs Date/Time: March 02, 2018 BMI 26.69 Index Weight 150.7 lbs Height 63 in Temperature 97.7 F Cardiac Monitoring Heart Rate 83 /min Blood Pressure Diastolic 69 mm Hg Blood Pressure Systolic 102 mm Hg Results No Known Results Summary Purpose [employer] Submission
--- OUTSIDE RECORDS SUMMARY | 2018-10-06 09:02 | XMS REPORT ---
Author Author Krystin Hernandez Organization [employer] Address Unknown Phone Unavailable Care Team Providers Care Furnace Repairer Name Role Phone Krystin Hernandez CP Unavailable Allergies No Known Allergies Problems Problem Type Condition Code Onset Dates Condition Status Problem Varicose vein of leg I83.90 Active Problem Essential hypertension I10 Active Medications Medication Code System Code Instructions Start Date End Date Status Dosage Valsartan [facility] 38106569370 160 MG Orally Once a day Active 1 tablet Triamterene-HCTZ [facility] 55059356895 37.5-25 MG Orally Once a day Active 1 tablet in the morning Atorvastatin Calcium [facility] 89932468658 10 MG Orally Once a day Active 1 tablet Estrace [facility] [address]-51 1 MG uses twice a week Active cream Results No Known Results Summary Purpose [employer] Submission
--- OUTSIDE RECORDS SUMMARY | 2018-10-06 09:02 | XMS REPORT | Summary of Care ---
Author Author [facility] Organization [facility] Address Unknown Phone Unavailable Care Team Providers Care Pharmacy Director Name Role Phone Richard Bonner PCP Encounter HQ Encntr_alias(FIN) [id number] Date(s): 12/22/15 - 12/22/15 [facility] [address] [place] [address]- Discharge Disposition: Home Attending Physician: Richard Bonner MD Referring Physician: Richard Bonner MD Vital Signs No data available for this section Problem List Condition Effective Dates Status Health Status Informant HTN - Active Hypertension(Confirm ed) Syncope and 09/08/12 Active collapse(Confirmed) Allergies, Adverse Reactions, Alerts Substance Reaction Severity Status NKDA Active Medications No data available for this section Results No data available for this section Immunizations No data available for this section Procedures No data available for this section Social History No data available for this section Assessment and Plan No data available for this section
--- OUTSIDE RECORDS SUMMARY | 2018-10-06 09:02 | XMS REPORT | CCD ---
Author Author Auto Generated Organization [facility] Address Unknown Phone Unavailable Care Team Providers Care Process Development Technician Name Role Phone Richard Bonner PP Allergies, Adverse Reactions, Alerts Substance Reaction Status NKDA Active Problem List Condition Effective Dates Status HTN - Hypertension Active Syncope and collapse 09/08/2012 Active
--- OUTSIDE RECORDS SUMMARY | 2018-10-06 09:02 | XMS REPORT ---
Author Author Krystin Hernandez Organization [employer] Address Unknown Phone Unavailable Care Team Providers Care Group Work Program Director Name Role Phone Krystin Hernandez CP Unavailable Allergies, Adverse Reactions, Alerts Substance Reaction Event Type N.K.D.A. Info Not Available Non Drug Allergy Problems Problem Type Condition Code Onset Dates Condition Status Assessment Age-related osteoporosis without current pathological fracture M81.0 Active Assessment Mixed hyperlipidemia E78.2 Active Assessment Dysuria R30.0 Active Assessment Low vitamin D level E55.9 Active Problem Mixed hyperlipidemia E78.2 Active Problem Age-related osteoporosis without current pathological fracture M81.0 Active Problem Low vitamin D level E55.9 Active Assessment Essential hypertension I10 Active Assessment Varicose vein of leg I83.90 Active Problem Essential hypertension I10 Active Problem Varicose vein of leg I83.90 Active Medications Medication Code System Code Instructions Start Date End Date Status Dosage Atorvastatin Calcium [facility] 74887742819 10 mg Orally Once a day Active 1 tablet Valsartan [facility] 39928283978 160 MG Orally Once a day Active 1 tablet Ergocalciferol [facility] 00494499207 [address]8632 UNIT Orally once a week Dec 09, 2017 March 09, 2018 Active 1 capsule Estrace [facility] 58766989776 1 MG uses twice a week Active cream Triamterene-HCTZ [facility] 99184917864 37.5-25 MG Orally Once a day Active 1 tablet in the morning Vital Signs Date/Time: Dec 09, 2017 BMI 26.60 Index Weight 150.2 lbs Height 63 in Temperature 98.1 F Cardiac Monitoring Heart Rate 86 /min Blood Pressure Diastolic 67 mm Hg Blood Pressure Systolic 101 mm Hg Results No Known Results Summary Purpose [employer] Submission
--- OUTSIDE RECORDS SUMMARY | 2018-10-06 09:02 | XMS REPORT | Summary of Care ---
Author Author [facility] Organization [facility] Address Unknown Phone Unavailable Care Team Providers Care Soft Drink Powder Mixer Name Role Phone Richard Bonner PCP Encounter HQ Encntr_alias(FIN) [id number] Date(s): 04/22/16 - 04/22/16 [facility] [address] [place] [address]- [phone] Discharge Disposition: Home Attending Physician: Richard Bonner MD Vital Signs No [...]
--- OUTSIDE RECORDS SUMMARY | 2018-10-06 09:03 | XMS REPORT | Summary of Care ---
Author Author [facility] Organization [facility] Address Unknown Phone Unavailable Encounter HQ Yudy(FIN) [id number] Date(s): 02/20/18 - 02/20/18 [facility] [address] [place] [address]- Discharge Disposition: Home or Self Care Attending Physician: Krystin Hernandez MD Referring Physician: Krystin Hernandez MD Vital Signs No data available for this section Problem List Condition Effective Dates Status Health Status Informant HTN - Active Hypertension(Confirm ed) Hypercholesteremia(C Resolved onfirmed) HTN Resolved (hypertension)(Confi rmed) Syncope and 09/08/12 Active collapse(Confirmed) Allergies, Adverse Reactions, Alerts Substance Reaction Severity Status NKDA Active Medications No data available for this section Results No data available for this section Immunizations No data available for this section Procedures Procedure Date Related Diagnosis Body Site Status Hysterectomy Completed Tonsillectomy Completed Social History Social History Type Response Smoking Status Never smoker; Exposure to Tobacco Smoke None; Cigarette Smoking Last 365 Days No; Reg Smoking Cessation Counseling No entered on: 08/08/17 Assessment and Plan No data available for this section
--- OUTSIDE RECORDS SUMMARY | 2018-10-06 09:03 | XMS REPORT | Summary of Care ---
Author Author [facility] Organization [facility] Address Unknown Phone Unavailable Encounter HQ Encntr_alipatric(FIN) [id number] Date(s): 05/31/17 - 05/31/17 [facility] [address] [place] [address]- Discharge Disposition: Home or Self Care Attending Physician: Richard Bonner MD Referring Physician: [...]
--- OUTSIDE RECORDS SUMMARY | 2018-10-06 09:03 | XMS REPORT | Summary of Care ---
Author Author SMITHA Alvarado, JUNE Organization Unknown Address [facility] Phone Unavailable Care Team Providers Care Refractory Furnace Designer Name Role Phone SMITHA Alvarado, JUNE Unavailable Unavailable ALEX KONG M.D. Unavailable Unavailable JAMISON RIZZO, JEANETTE Unavailable Unavailable Unavailable Unavailable Functional Status Name Dates Details Functional status health issues are not documented Status: Name Dates Details Cognitive status health issues are not documented Status: Problems Name Dates Details Throat pain (784.1, R07.0) Status: Active Esophageal reflux (530.81, K21.9) Status: Active Dysphagia (787.20, R13.10) Status: Active Tinnitus, subjective (388.31, H93.19) Status: Active Anosmia (781.1, R43.0) Status: Active Vaginal yeast infection (112.1, B37.3) Status: Active Dysuria (788.1, R30.0) Status: Active Vaginal atrophy (627.3, N95.2) Status: Active Screening mammogram, encounter for (V76.12, Z12.31) Status: Active Encounter for screening colonoscopy (V76.51, Z12.11) Status: Active Chronic venous insufficiency (459.81, I87.2) Status: Active Varicose veins of lower extremity with inflammation (454.1, I83.10) Status: Active Varicose veins with pain (454.8, I83.819) Status: Active Medications Name Dates Details Multi-Day Vitamins TABS Active Aspirin TABS * Refills: 0 Active Fish Oil CAPS * Refills: 0 Active Calcium TABS * Refills: 0 Active Lisinopril 2.5 MG Oral Tablet * Refills: 0 * Start : 27-Jan-2017 Active Diovan 40 MG Oral Tablet * Refills: 0 * Start : 27-Jan-2017 Active Fluconazole 150 MG Oral Tablet Take 1 tablet by mouth for one dose. May repeat dose in 3 days if symptoms not improved. * Quantity: 2 Refills: 3 ALEX KONG M.D. * Start : 27-Jan-2017 Active Lipitor 10 MG Oral Tablet * Refills: 0 * Start : 10-Feb-2017 Active Estrace 0.1 MG/GM Vaginal Cream Insert 1 gram vaginally at bedtime twice weekly. * Quantity: 1 Refills: 11 ALEX KONG M.D. * Start : 10-Feb-2017 Active 42.5 GM Tube Allergies and Adverse Reactions Name Dates Details No Known Drug Allergies (Allergy) Status: Active Past Medical History Name Dates Details History of arthritis (V13.4, Z87.39) Status: Resolved History of esophageal reflux (V12.79, Z87.19) Status: Resolved History of Essential hypertension, benign (401.1, I10) Status: Resolved History of hypothyroidism (V12.29, Z86.39) Status: Resolved History of varicose veins (V12.59, Z86.79) Status: Resolved Procedures Procedure Dates Details CVRAD - Lower Venous Comp - 46727 Date: 09-Apr-2018 History of Septoplasty Completed History of Excision Of Turbinate Completed History of Tonsillectomy Completed History of Nasal Endoscopy Polypectomy Completed History of Hysterectomy Completed Immunization Name Dates Details Immunizations not documented Family History Name Dates Details Family history of Allergies Comments: Family History Status: Active Name Dates Details Family history of varicose veins (V17.49, Z82.49) Status: Active Family history of essential hypertension (V17.49, Z82.49) Status: Active Name Dates Details Family history of varicose veins (V17.49, Z82.49) Status: Active Family history of essential hypertension (V17.49, Z82.49) Status: Active Social History Name Dates Details - Status: Name Dates Details Former smoker Vital Signs Date Test Result Details No Known Vitals to report Results Date Description Value Details Results not documented Plan of Care Name Dates Details Planned Observations Planned Goals not documented Interventions Provided Instructions* Patient Specific Education Given; Done: 30 Apr 2018 Plan* Reviewed the following results today: * Wilmer LE Venous US (dated 04/09/2018) * I evaluated Ms. Garrison today for symptomatic varicose veins. She has worsening symptoms related to venous insufficeincy. * She will need a staged Wilmer LE GSV RF Ablation. Since her right leg is more symptomatic with start with the RLE: * 1st: RLE GSV R/F Ablation ; RLE lesser saphenous vein and stab avulsion of varicosities. * then 3 - 4 weeks later * 2nd: LLE GSV R/F Abation and stab avulsion of varcosities. * We will request a cardiac clearance for her. Referred to Dr. Guan Name Dates Details Instructions not documented Encounters Appointment; ALEX KONG M.D. Encounter Diagnosis: Problem not documented On: 20-May-2016 14:00 Appointment; ALEX KONG M.D. Encounter Diagnosis: Problem not documented On: 27-Jan-2017 14:20 Appointment; ALEX KONG M.D. Encounter Diagnosis: Problem not documented On: 10-Feb-2017 12:40 Appointment; ALEX KONG M.D. Encounter Diagnosis: Problem not documented On: 19-May-2017 9:20 Appointment; JUNE BONE M.D. Encounter Diagnosis: Problem not documented On: 19-Mar-2018 14:00 Appointment; [facility], [facility] Encounter Diagnosis: Problem not documented On: 09-Apr-2018 9:00 Appointment; JUNE BONE M.D. Encounter Diagnosis: Problem not documented On: 30-Apr-2018 14:30
--- OUTSIDE RECORDS SUMMARY | 2018-10-06 09:03 | XMS REPORT | Summary of Care ---
Author Author [facility] Organization [facility] Address Unknown Phone Unavailable Encounter JANIS Jimenes(ROB) [id number] Date(s): 08/20/17 - 08/20/17 [facility] [address] [address]- Discharge Disposition: Home or Self Care Attending Physician: Vishnu Khan MD Referring Physician: Vishnu Khan MD Vital Signs 1 2 3 Most recent to oldest [Reference Range]: 160.02 cm (08/08/17 2:03 PM) Height 115/75 mmHg (08/20/17 8:00 AM) 116/72 mmHg (08/20/17 7:45 AM) 106/53 mmHg (08/20/17 7:39 AM) Blood Pressure [90-140/60-90 mmHg] 21 BRMIN *HI* (08/20/17 8:00 AM) 18 BRMIN (08/20/17 7:45 AM) 18 BRMIN (08/20/17 7:39 AM) Respiratory Rate [14-20 BRMIN] 60 bpm (08/20/17 6:53 AM) Peripheral Pulse Rate [60-100 bpm] 67.273 kg (08/08/17 2:03 PM) Weight 26.27 m2 (08/08/17 2:03 PM) Body Mass Index Problem List Condition Effective Dates Status Health Status Informant HTN - Active Hypertension(Confirm ed) Hypercholesteremia(C Resolved onfirmed) HTN Resolved (hypertension)(Confi rmed) Syncope and 09/08/12 Active collapse(Confirmed) Allergies, Adverse Reactions, Alerts Substance Reaction Severity Status NKDA Active Medications albuterol-ipratropium 2.5-0.5 mg inhalation solution 3 mL, Route: NEB, Drug Form: SOLN, Dosing Weight 67.273, kg, ONCE, STAT, Start d ate: 08/20/17 6:51:00 CDT, Stop date: 08/20/17 6:51:00 CDT Notes: (Same as: Gilmer) Start Date: 08/20/17 Stop Date: 08/20/17 Status: Ordered Diovan HCT 80 mg-12.5 mg oral tablet 1 tab, PO, Daily, # 30 tab, 0 Refill(s) Start Date: 08/08/17 Status: Ordered sodium chloride 0.9% 500 ml INJ 500 mL 500 mL, Rate: 25 ml/hr, Infuse over: 20 hr, Route: IV, Dosing Weight 67.273 kg, Total Volume: 500, Start date: 08/20/17 6:51:00 CDT, Duration: 1 day, Stop date: 08/21/17 6:50:00 CDT Start Date: 08/20/17 Stop Date: 08/20/17 Status: Discontinued Zocor 10 mg oral tablet 10 mg=1 tab, PO, Bedtime, # 30 tab, 0 Refill(s) Start Date: 08/08/17 Stop Date: 09/07/17 Status: Ordered Results No data available for this section Immunizations No data available for this section Procedures Procedure Date Related Diagnosis Body Site Hysterectomy Tonsillectomy Social History Social History Type Response Smoking Status Never smoker; Exposure to Tobacco Smoke None; Cigarette Smoking Last 365 Days No; Reg Smoking Cessation Counseling No Assessment and Plan No data available for this section
--- OUTSIDE RECORDS SUMMARY | 2018-10-06 09:03 | XMS REPORT ---
Author [facility] Address Unknown Phone Unavailable Care Team Providers Care Name Role Phone STEWART GARG Unavailable Unavailable Problems This patient has no known problems. Allergies, Adverse Reactions, Alerts This patient has no known allergies or adverse reactions. Medications This patient has no known medications. Results Test Description Test Time Test Comments Text Results Atomic Results Result Comments CHEST 2 VIEWS 2018-09-30 11:30:00 [place] [address] Patient Name: DUSTIN GARRISON MR #: [id number] : 1950 Age/Sex: 67/F Req #: [id number] [facility] Physician: Ordered by: STEWART GARG MD Report #: [id number] Location: OR Room/Bed: Procedure: [id number] DX/CHEST 2 VIEWS Exam Date: 09/30/18 Exam Time: 1046 REPORT STATUS: Signed PROCEDURE: X-RAY CHEST, TWO VIEWS COMPARISON: None. INDIC ATIONS: PRE OPERATIVE FOR SURGERY [id number]/06/2018 FINDINGS: Lungs are well-inflated. No focal consolidation, pleural effusion, or pneumothorax. Cardiomediastinal contour and pulmonary vasculature are within normal limits. No acute osseous abnormality. CONCLUSION: No acute cardiopulmonary abnormality. Dictated by: Stevie Taylor M.D. on 09/30/2018 at 11:30 Electronically approved by: Stevie Taylor M.D. on 09/30/2018 at 11:30 Dictated By: STEVIE TAYLOR MD 113 Transcribed By: AMOL on 09/30/18 1130 COPY TO: STEWART GARG MD
[2018-10-06] MEDS ORDERED: CEFAZOLIN SOD 2 GM/D5W 50ML 50 ML IV ONE (09:21)
[2018-10-06] MEDS ORDERED: ESTROGENS CONJUGATED VAGINAL CR 45 GM TUBE PV ONE (10:10)
[2018-10-06] MEDS ORDERED: BUPIVACAINE 0.25%/EPI 30ML SDV INJ ONE ×2 (10:10→11:55)
[2018-10-06] MEDS: LACTATED RINGER'S 1,000 ML IV SCH (12:40)
[2018-10-06] MEDS ORDERED: ONDANSETRON HCL INJ 2 MG/ML VIAL IV PRN (12:45)
[2018-10-06] MEDS ORDERED: ACETAMINOPHEN 325 MG TAB PO PRN (12:45)
[2018-10-06] MEDS ORDERED: HYDROCODONE/APAP 5MG-325MG TAB PO PRN (12:45)
[2018-10-06] MEDS ORDERED: MEPERIDINE HCL INJ 25 MG/ML VIAL IV PRN (12:45)
[2018-10-06] MEDS ORDERED: BISACODYL 5 MG TAB EC PO PRN (12:45)
[2018-10-06] MEDS ORDERED: DIPHENHYDRAMINE HCL 25 MG CAP PO PRN (12:45)
[2018-10-06] MEDS ORDERED: ZOLPIDEM TARTRATE 5 MG TAB PO PRN (12:45)
[2018-10-06] MEDS ORDERED: FENTANYL CITRATE/PF 100MCG/2 ML INJ ONE ×2 (13:34→17:52)
--- NOTE | 2018-10-06 14:07 | Operative Report ---
DATE OF PROCEDURE: October 06, 2018 PREOPERATIVE DIAGNOSES 1. Pelvic organ prolapse. 2. Genuine stress incontinence. POSTOPERATIVE DIAGNOSES 1. Pelvic organ prolapse. 2. Genuine stress incontinence. OPERATIONS PERFORMED 1. Anterior and posterior repair. 2. Transobturator tape. 3. Sacrospinous colpopexy. 4. Cystoscopy. COMPLICATIONS: None. ESTIMATED BLOOD LOSS: 30 mL. PROCEDURE: The patient was taken to the OR where general anesthesia was placed. She was prepped and draped in the normal sterile fashion and placed in the dorsal lithotomy position. After examination under anesthesia, a weighted speculum was placed inside of the vagina. Two Allis clamps were applied at the vaginal vault, and subvaginal tissue anteriorly was injected with Marcaine with epinephrine 0.25%. The vaginal vault was opened with a scalpel, and the vagina was dissected off the bladder using Metzenbaum scissors using push-spread technique and opened in the midline using the same instrument. Two flaps of the vagina were dissected off the bladder using both sharp and blunt dissection. The pelvic fascia around the pubic ramus was pierced with the index finger. The ischial spine and sacrospinous ligaments were palpated on both sides. Using the Capio needle martin, a Vicryl suture was placed in the sacrospinous ligament and the other end was hitched to the vaginal vault. The pubocervical ligaments on both sides were approximated using Vicryl 0 sutures. The excess vaginal skin was trimmed off using curved Garcia scissors, and the vagina was closed with interlocking stitches of Vicryl 0. Sacrospinous sutures were tied, and the vaginal vault was innervated. Following this, a Robin's catheter was placed inside the bladder for drainage, and the pubocervical ligaments were marked with an Allis clamp and the other end with another Allis. The subvaginal tissue was injected with Marcaine with epinephrine 0.25%, 10 mL. The vagina was opened in the level of the midurethra using a scalpel, and the urethra was dissected off the vagina using Metzenbaum scissors using the push-spread technique on both sides until the inferior pubic ramus was reached. Entry points on each side of the pelvis at the level of the clitoris and the intercrural line were made with a scalpel, and the Obtryx trocar was then passed through the entry points, felt with a finger in the vagina at the level of the pubic ramus, and guided to the outside. The same was repeated on the other side. The sling was threaded over the trocar, and the trocar was withdrawn and the sling laid down flat at the level of the midurethra. Cystoscopy was performed at this stage using the 70-degree scope and saline for distention and showed normal bladder and urethra, and the plastic cover of the sling was removed and excess sling was trimmed off at the entry points, which were closed later on with Dermabond. The vagina was closed with an interlocking stitch of Vicryl 2-0. Following this, the posterior repair was performed using 2 Allis clamps at the mucocutaneous junction about 1 cm from the fourchette. The subvaginal tissue posteriorly was injected with Marcaine with epinephrine 0.25%, 20 mL, and the skin in between the 2 Allis clamps was removed using curved Garcia scissors. The vagina was dissected off the perineum using curved Garcia scissors, and the perineum and the vagina were dissected off the underlying tissue using the Garcia scissors. The vagina was dissected off the rectum using Metzenbaum scissors using the push-spread technique and opened in the midline using the same instrument. The 2 flaps of the vagina were dissected off the underlying muscles using both sharp and blunt dissection. At that stage, the levator ani were approximated using a Vicryl 0 stitch, and the excess vaginal skin was trimmed off using curved Garcia scissors. The vagina was approximated using continuous interlocking stitches of Vicryl 0. The perineal skin was approximated using Vicryl 2-0 stitch, a vaginal pack, and a Robin's catheter was placed inside the bladder at the end of the procedure. Patient tolerated the procedure well. Lap, instrument and needle count was correct x2 at the end of the procedure. Job#: [id number] YOEL
[2018-10-06] MEDS: KETOROLAC TROMETHAMINE 30 MG/ML VIAL IM PRN ×2 (15:45→21:40)
[2018-10-06 16:15] VITALS: BP 113/53
[2018-10-06 16:20] VITALS: BP 113/53
[2018-10-06] MEDS ORDERED: DEXAMETHASONE SOD PHOS INJ 4 MG/ML VIAL ONE (17:49)
[2018-10-06] MEDS ORDERED: EPHEDRINE SULFATE INJ 50 MG/10 ML SYR ONE (17:49)
[2018-10-06] MEDS ORDERED: PROPOFOL IV EMULSION 10 MG/ML 20 ML VIAL ONE (17:49)
[2018-10-06] MEDS ORDERED: SEVOFLURANE INHAL SOLN 250 ML PEN BTL ONE (17:49)
[2018-10-06] MEDS ORDERED: ONDANSETRON HCL INJ 2 MG/ML VIAL ONE (17:49)
[2018-10-06] MEDS ORDERED: LIDOCAINE HCL 2% LOCAL INJ 5 ML SDV VIAL INJ ONE (17:49)
[2018-10-06] MEDS ORDERED: MIDAZOLAM HCL 2 MG/2 ML VIAL ONE (17:52)
[2018-10-06 20:00] VITALS: BP 105/53
[2018-10-06 20:45] VITALS: BP 105/53
[2018-10-07] MEDS: LACTATED RINGER'S 1,000 ML IV SCH ×3 (00:04→12:40)
[2018-10-07 00:28] VITALS: BP 89/44
[2018-10-07 04:00] VITALS: BP 104/55
[2018-10-07] MEDS: KETOROLAC TROMETHAMINE 30 MG/ML VIAL IM PRN (05:55)
[2018-10-07 05:58] LABS: BASOPHILS % 0.1 % (0.0-1.0); HEMATOCRIT 33.4 % (34.2-44.1); HEMOGLOBIN 11.2 g/dL (12.0-16.0); LYMPHOCYTES # (AUTO) 1.4 (1.0-3.2); LYMPHOCYTES % 12.4 % (18.0-39.1); MEAN CORPUSCULAR HEMOGLOBIN 30.5 pg (28-32); MEAN CORPUSCULAR HGB CONC 33.5 g/dL (31-35); MONOCYTES # (AUTO) 0.8 (0.2-0.8); MONOCYTES % 7.1 % (4.4-11.3); NEUTROPHILS # (AUTO) 8.8 (2.1-6.9); NEUTROPHILS % 79.9 % (38.7-80.0); PLATELET COUNT 206 x10e3/uL (140-360); RED BLOOD COUNT 3.67 x10e6/uL (3.6-5.1); RED CELL DISTRIBUTION WIDTH 14.2 % (11.7-14.4)
[2018-10-07 07:20] VITALS: BP 109/59
[2018-10-07 09:01] VITALS: BP 109/59
[2018-10-07 12:27] VITALS: BP 95/47
[2018-10-07] MEDS ORDERED: TYLENOL WITH C1 EACH PO (14:27)
== END 2018-10-07 14:44 | disposition home or self-care (01) ==
LOC: OR 09:00 → PACU V 12:43 → ICU 15:26 → MED/SURG 15:37
PROVIDERS: ADMIT Obstetrics & Gynecology; ATTEND Obstetrics & Gynecology
DX: N81.89 Other female genital prolapse (principal); N39.3 Stress incontinence (female) (male); Z01.810 Encounter for preprocedural cardiovascular examination; Z01.812 Encounter for preprocedural laboratory examination; Z01.811 Encounter for preprocedural respiratory examination; I10 Essential (primary) hypertension; E78.00 Pure hypercholesterolemia, unspecified; E03.9 Hypothyroidism, unspecified; Z87.440 Personal history of urinary (tract) infections
CPT/HCPCS: 36415 ×2; 57260; 57282; 57288; 71046; 80053; 85025 ×2; 93005; C1781; G0378 ×2; J0690; J1100; J1885 ×2; J2001; J2250; J2405; J2704; J7120 ×2